=== PATIENT | female | born 1960 | race African-American/Black ===

== ENCOUNTER 2017-07-24 19:45 | Emergency (ER) | payer OTHER ==
[~2017-07-24] VITALS: Ht 170.2 cm; Wt 113.0 kg
[~2017-07-24 19:45] MED LIST: BENA40TA3 PO; HYDR25TA PO; OMEP20CA10 PO
[2017-07-24] MEDS ORDERED: AMLO10TA80 PO (20:09)
[2017-07-24] MEDS ORDERED: SODIUM CHLORIDE 0.9% 1,000 ML IV ONE (20:30)
[2017-07-24] MEDS ORDERED: METHYLPREDNISOLONE SOD SUCC 125 MG/2 ML VIAL IV ONE (20:30)
[2017-07-24] MEDS ORDERED: DIPHENHYDRAMINE 50MG/ML VIAL IV ONE (20:30)
[2017-07-24] MEDS ORDERED: FAMOTIDINE 20MG/2ML VIAL IV ONE (20:30)
[2017-07-24 21:11] LABS: BASOPHILS % 0.5 % (0.0-2.0); EOSINOPHILS % 1.9 % (0.0-5.0); HEMATOCRIT. 28.2 % (36.0-48.0); HEMOGLOBIN. 8.3 g/dL (12.0-16.0); LYMPHOCYTES % 31.7 % (20.0-50.0); MEAN CORPUSCULAR HEMOGLOBIN 18.8 pg (28.0-32.0); MEAN CORPUSCULAR VOLUME 63.4 fL (81.0-99.0); MEAN PLATELET VOLUME 8.6 fl (7.4-10.4); MONOCYTES % 7.1 % (2.0-8.0); NEUTROPHILS % 58.8 % (40.0-76.0); PLATELET 415 x1000/uL (130-400); RED BLOOD CELL COUNT 4.44 mill/uL (4.2-5.4); RED CELL DISTRIBUTION WIDTH 21.6 % (11.6-14.6)
[2017-07-24 21:19] LABS: CHLORIDE 100 mEq/L (98-107)
[2017-07-24 21:27] LABS: CARBON DIOXIDE 25 mEq/L (21-32)
[2017-07-24 21:43] LABS: PLATELET ESTIMATE SLIGHTLY INCREASED
[2017-07-25 02:30] VITALS: BP 153/79
== END 2017-07-25 02:30 | disposition home or self-care (01) ==
LOC: ER 19:45
DX: T78.40XA Allergy, unspecified, initial encounter (principal); L50.9 Urticaria, unspecified; R22.0 Localized swelling, mass and lump, head; I10 Essential (primary) hypertension; F17.200 Nicotine dependence, unspecified, uncomplicated; Z88.0 Allergy status to penicillin; X58.XXXA Exposure to other specified factors, initial encounter
CPT/HCPCS: 36415; 71010; 80053; 85025; 96361; 96374; 96375; 99285; 99406; J1200; J2930; J3490; J7030; Z7610

== ENCOUNTER 2020-10-26 15:10 | Inpatient (IN) | payer OTHER ==
[~2020-10-26] VITALS: Ht 167.6 cm; Wt 80.3 kg
[~2020-10-26 15:10] MED LIST changes: +AMLO10TA80 PO; -BENA40TA3 PO; +BENA40TA9 PO; -OMEP20CA10 PO; +OMEP20CA14 PO
[2020-10-26] MEDS ORDERED: ACETAMINOPHEN 325MG TABLET PO ONE (16:30)
[2020-10-26 17:46] LABS: BG BASE EXCESS -1.5 mmol/L (-2.0-2.0); BG CARBOXYHEMOGLOBIN 0.3 % (0.5-1.5); BG DEOXYHEMOGLOBIN 4.6 % (0.0-5.0); BG FRACTION INSPIRED OXYGEN 36; BG METHEMOGLOBIN 1.3 % (0.0-1.5); BG OXYGEN SATURATION 95.3 % (92.0-98.5); BG OXYHEMOGLOBIN 93.8 % (94.0-97.0); BG PCO2 31.3 mmHg (35.0-45.0); BG PH 7.464 (7.350-7.450); BG PO2 79.4 mmHg (75.0-100.0); BG SAMPLE SITE RIGHT RADIAL; BG VENT MODE NASAL CANNULA
[2020-10-26 22:08] LABS: EOSINOPHILS % 0.1 % (0.0-5.0)
[2020-10-26 22:16] LABS: CHLORIDE 102 mEq/L (98-107)
[2020-10-26 22:17] LABS: BASOPHILS % 0.6 % (0.0-2.0); LYMPHOCYTES % 16.3 % (20.0-50.0); MEAN CORPUSCULAR HEMOGLOBIN 18.1 pg (28.0-32.0); MEAN CORPUSCULAR VOLUME 63.1 fL (81.0-99.0); MEAN PLATELET VOLUME 8.9 fl (7.4-10.4); PLATELET 347 x1000/uL (130-400); RED BLOOD CELL COUNT 3.69 mill/uL (4.2-5.4); RED CELL DISTRIBUTION WIDTH 23.9 % (11.6-14.6)
[2020-10-26 22:20] LABS: HEMATOCRIT. 23.3 % (36.0-48.0); HEMOGLOBIN. 6.7 g/dL (12.0-16.0)
[2020-10-26 22:40] LABS: PLATELET ESTIMATE NORMAL
[2020-10-26] MEDS ORDERED: POTASSIUM CHLORIDE INJ 40 MEQ in DEXT 5% WATER 250 ML IV ONE (23:00)
[2020-10-26] MEDS ORDERED: POTASSIUM CHLORIDE 20MEQ TABLET SR PO ONE (23:00)
[2020-10-27] MEDS ORDERED: KCL 20MEQ/100ML PREMIX 100 ML IV NR ×2 (02:30→04:30)
[2020-10-27] MEDS ORDERED: LIDOCAINE HCL/PF 1% 2ML VIAL ONE (06:00)
[2020-10-27] MEDS ORDERED: ACETAMINOPHEN 325MG TABLET PO PRN (06:15)
[2020-10-27] MEDS ORDERED: MAGNESIUM/ALUMINUM HYDROXIDE/SIMETHICONE 30ML UDC PO PRN (09:45)
[2020-10-27] MEDS ORDERED: ONDANSETRON HCL 4MG/2ML INJ IV PRN (09:45)
[2020-10-27] MEDS ORDERED: POTASSIUM CHLORIDE INJ 40 MEQ in DEXT 5% WATER 250 ML IV NR (10:30)
[2020-10-27] MEDS: PANTOPRAZOLE SODIUM 40 MG/VIAL IV SCH ×2 (10:30→17:00)
[2020-10-27] MEDS: DEXAMETHASONE 10 MG/ML VIAL IV SCH (10:30)
[2020-10-27] MEDS ORDERED: AZITHROMYCIN 500 MG in DEXT 5% WATER 250 ML IV SCH (11:00)
[2020-10-27] MEDS ORDERED: LEVOFLOXACIN 250MG PREMIX 50 ML IV SCH (11:00)
[2020-10-27 12:26] LABS: HEMOGLOBIN 7.1 g/dL (12.0-16.0); MEAN CORPUSCULAR HEMOGLOBIN 19.8 pg (28.0-32.0); MEAN CORPUSCULAR VOLUME 66.8 fL (81.0-99.0); PLATELET 337 x1000/uL (130-400); RED CELL DISTRIBUTION WIDTH 29.1 % (11.6-14.6)
[2020-10-27 12:30] LABS: CHLORIDE 105 mEq/L (98-107)
[2020-10-27 12:36] LABS: TOTAL IRON BINDING CAPACITY 420 ug/dL (250-450)
[2020-10-27 16:31] LABS: BG BASE EXCESS -1.9 mmol/L (-2.0-2.0); BG CARBOXYHEMOGLOBIN 0.5 % (0.5-1.5); BG DEOXYHEMOGLOBIN 6.6 % (0.0-5.0); BG FRACTION INSPIRED OXYGEN 99.9; BG HCO3 ACT 22.1 mmol/L (22.0-26.0); BG METHEMOGLOBIN 0.5 % (0.0-1.5); BG OXYGEN SATURATION 93.3 % (92.0-98.5); BG OXYHEMOGLOBIN 92.4 % (94.0-97.0); BG PO2 70.2 mmHg (75.0-100.0); BG SAMPLE SITE LEFT RADIAL; BG TOTAL HEMOGLOBIN 7.9 g/dL (12.0-18.0); BG VENT MODE MASK - NRB
[2020-10-27] MEDS: DOCUSATE SODIUM 250MG CAPSULE PO SCH (17:45)
[2020-10-27] MEDS: FERROUS SULFATE 325MG TABLET PO SCH (18:00)
[2020-10-28 06:32] LABS: CHLORIDE 105 mEq/L (98-107)
[2020-10-28 06:42] LABS: PHOSPHORUS 1.9 mg/dL (2.5-4.9)
[2020-10-28 06:44] LABS: LDL CHOLESTEROL 79 mg/dL (5-100)
[2020-10-28 06:46] LABS: BASOPHILS % 0.5 % (0.0-2.0); HDL CHOLESTEROL 48 mg/dL (40-59); HEMATOCRIT. 25.1 % (36.0-48.0); HEMOGLOBIN. 7.5 g/dL (12.0-16.0); LYMPHOCYTES % 13.8 % (20.0-50.0); MEAN CORPUSCULAR HEMOGLOBIN 20.3 pg (28.0-32.0); MEAN CORPUSCULAR VOLUME 67.5 fL (81.0-99.0); MEAN PLATELET VOLUME 9.2 fl (7.4-10.4); MONOCYTES % 2.7 % (2.0-8.0); PLATELET 314 x1000/uL (130-400); RED BLOOD CELL COUNT 3.73 mill/uL (4.2-5.4); RED CELL DISTRIBUTION WIDTH 28.2 % (11.6-14.6)
[2020-10-28] MEDS: PANTOPRAZOLE SODIUM 40 MG/VIAL IV SCH ×2 (09:00→17:18)
[2020-10-28] MEDS: DEXAMETHASONE 10 MG/ML VIAL IV SCH (09:00)
[2020-10-28] MEDS: DOCUSATE SODIUM 250MG CAPSULE PO SCH (09:00)
[2020-10-28 10:23] LABS: BG BASE EXCESS -0.5 mmol/L (-2.0-2.0); BG CARBOXYHEMOGLOBIN 0.4 % (0.5-1.5); BG DEOXYHEMOGLOBIN 21.7 % (0.0-5.0); BG FRACTION INSPIRED OXYGEN 100; BG HCO3 ACT 23.2 mmol/L (22.0-26.0); BG METHEMOGLOBIN 0.5 % (0.0-1.5); BG OXYGEN SATURATION 78.1 % (92.0-98.5); BG OXYHEMOGLOBIN 77.4 % (94.0-97.0); BG PCO2 33.6 mmHg (35.0-45.0); BG PH 7.457 (7.350-7.450); BG PO2 41.3 mmHg (75.0-100.0); BG VENT MODE MASK - NRB
[2020-10-28] MEDS: FERROUS SULFATE 325MG TABLET PO SCH ×3 (12:10→17:18)
[2020-10-28] MEDS: LEVOFLOXACIN 500MG PREMIX 100 ML IV SCH (13:24)
[2020-10-28 13:50] VITALS: BP_SYST 132; BP_SYST 154; BP_DIAS 52
[2020-10-28 16:00] VITALS: BP 157/64
[2020-10-28] MEDS ORDERED: POTASSIUM PHOS,M-BASIC-D-BASIC 20 MMOL in DEXT 5% WATER 243.3333 ML IV NR (18:30)
[2020-10-28 19:32] LABS: HEMATOCRIT 26.9 % (36.0-48.0); HEMOGLOBIN 7.7 g/dL (12.0-16.0)
[2020-10-28 20:00] VITALS: BP 141/68
[2020-10-29] VITALS: BP 125/71
[2020-10-29 04:00] VITALS: BP 144/76
[2020-10-29 07:39] LABS: CHLORIDE 104 mEq/L (98-107)
[2020-10-29 07:45] LABS: PHOSPHORUS 3.4 mg/dL (2.5-4.9)
[2020-10-29 08:00] VITALS: BP 143/73
[2020-10-29 08:42] LABS: HEMATOCRIT. 24.8 % (36.0-48.0); HEMOGLOBIN. 7.4 g/dL (12.0-16.0); MEAN CORPUSCULAR HEMOGLOBIN 20.2 pg (28.0-32.0); MEAN CORPUSCULAR VOLUME 67.4 fL (81.0-99.0); RED BLOOD CELL COUNT 3.68 mill/uL (4.2-5.4); RED CELL DISTRIBUTION WIDTH 29.2 % (11.6-14.6)
[2020-10-29] MEDS: FERROUS SULFATE 325MG TABLET PO SCH ×2 (08:42→11:56)
[2020-10-29] MEDS: DEXAMETHASONE 10 MG/ML VIAL IV SCH (08:42)
[2020-10-29] MEDS: PANTOPRAZOLE SODIUM 40 MG/VIAL IV SCH ×2 (08:42→17:34)
[2020-10-29] MEDS: DOCUSATE SODIUM 250MG CAPSULE PO SCH (09:00)
[2020-10-29] MEDS: LEVOFLOXACIN 500MG PREMIX 100 ML IV SCH (11:56)
[2020-10-29 12:00] VITALS: BP 134/69
[2020-10-29 14:25] LABS: MEAN PLATELET VOLUME 9.6 fl (7.4-10.4); PLATELET 422 x1000/uL (130-400)
[2020-10-29 14:29] LABS: NUCLEATED RED BLOOD CELLS 10 /100 WBC; PLATELET ESTIMATE INCREASED
[2020-10-29 16:00] VITALS: BP 139/72
[2020-10-29] MEDS: IRON SUCROSE COMPLEX 100 MG/5 ML ML IV SCH (17:15)
[2020-10-29 20:00] VITALS: BP 120/66
[2020-10-30] VITALS: BP 114/61
[2020-10-30 04:00] VITALS: BP 121/68
[2020-10-30 07:34] LABS: HEMATOCRIT. 26.6 % (36.0-48.0); MEAN CORPUSCULAR HEMOGLOBIN 20.3 pg (28.0-32.0); MEAN CORPUSCULAR VOLUME 67.4 fL (81.0-99.0); MEAN PLATELET VOLUME 9.3 fl (7.4-10.4); PLATELET 460 x1000/uL (130-400); RED BLOOD CELL COUNT 3.95 mill/uL (4.2-5.4); RED CELL DISTRIBUTION WIDTH 29.5 % (11.6-14.6)
[2020-10-30 07:47] LABS: CHLORIDE 105 mEq/L (98-107)
[2020-10-30 08:00] VITALS: BP 136/63
[2020-10-30] MEDS: DOCUSATE SODIUM 250MG CAPSULE PO SCH ×2 (08:57→16:02)
[2020-10-30] MEDS: DEXAMETHASONE 10 MG/ML VIAL IV SCH (08:57)
[2020-10-30] MEDS: IRON SUCROSE COMPLEX 100 MG/5 ML ML IV SCH (08:58)
[2020-10-30] MEDS: PANTOPRAZOLE SODIUM 40 MG/VIAL IV SCH ×2 (08:58→16:07)
[2020-10-30 11:41] VITALS: BP 141/64
[2020-10-30 15:54] VITALS: BP 149/76
[2020-10-30 20:00] VITALS: BP 165/75
[2020-10-30 22:45] LABS: NUCLEATED RED BLOOD CELLS 10 /100 WBC
[2020-10-30 22:46] LABS: PLATELET ESTIMATE INCREASED
[2020-10-30] MEDS: CLONIDINE 0.1MG TABLET PO PRN (23:26)
[2020-10-31] VITALS: BP 101/63
[2020-10-31 04:00] VITALS: BP 130/62
[2020-10-31 08:00] VITALS: BP 147/71
[2020-10-31] MEDS: IRON SUCROSE COMPLEX 100 MG/5 ML ML IV SCH (08:14)
[2020-10-31] MEDS: DEXAMETHASONE 10 MG/ML VIAL IV SCH (08:15)
[2020-10-31] MEDS: PANTOPRAZOLE SODIUM 40 MG/VIAL IV SCH ×2 (08:15→16:59)
[2020-10-31] MEDS: DOCUSATE SODIUM 250MG CAPSULE PO SCH ×2 (08:15→16:59)
[2020-10-31 09:38] LABS: CHLORIDE 106 mEq/L (98-107)
[2020-10-31 10:07] LABS: HEMATOCRIT. 31.4 % (36.0-48.0); HEMOGLOBIN. 8.9 g/dL (12.0-16.0); MEAN CORPUSCULAR HEMOGLOBIN 19.9 pg (28.0-32.0); MEAN CORPUSCULAR VOLUME 69.7 fL (81.0-99.0); MEAN PLATELET VOLUME 9.2 fl (7.4-10.4); PLATELET 385 x1000/uL (130-400); RED CELL DISTRIBUTION WIDTH 29.3 % (11.6-14.6)
[2020-10-31 12:00] VITALS: BP 152/82
[2020-10-31] MEDS ORDERED: THROAT LOZENGES-BENZOCAINE/MENTH/CETYLPYRD CL LOZENGES MM PRN (12:30)
[2020-10-31 16:00] VITALS: BP 144/65
[2020-10-31 20:00] VITALS: BP 141/58
[2020-10-31 23:33] LABS: NUCLEATED RED BLOOD CELLS 5 /100 WBC
[2020-10-31 23:34] LABS: PLATELET ESTIMATE NORMAL
[2020-11-01] VITALS: BP 139/60
[2020-11-01 04:00] VITALS: BP 163/67
[2020-11-01] MEDS: CLONIDINE 0.1MG TABLET PO PRN (05:55)
[2020-11-01 08:00] VITALS: BP 129/65
[2020-11-01] MEDS: PANTOPRAZOLE SODIUM 40 MG/VIAL IV SCH ×2 (08:40→16:43)
[2020-11-01] MEDS: DOCUSATE SODIUM 250MG CAPSULE PO SCH ×2 (08:40→16:44)
[2020-11-01] MEDS: DEXAMETHASONE 10 MG/ML VIAL IV SCH (08:40)
[2020-11-01] MEDS: IRON SUCROSE COMPLEX 100 MG/5 ML ML IV SCH (08:40)
[2020-11-01 12:00] VITALS: BP 118/52
[2020-11-01 16:00] VITALS: BP 124/59
[2020-11-01 20:00] VITALS: BP 129/60
[2020-11-02] VITALS: BP_SYST 120; BP_SYST 147; BP_DIAS 48; BP_DIAS 78
[2020-11-02 04:00] VITALS: BP 143/57
[2020-11-02 07:37] LABS: BASOPHILS % 0.3 % (0.0-2.0); EOSINOPHILS % 2.9 % (0.0-5.0); HEMATOCRIT. 27.3 % (36.0-48.0); HEMOGLOBIN. 8.1 g/dL (12.0-16.0); LYMPHOCYTES % 14.6 % (20.0-50.0); MEAN CORPUSCULAR HEMOGLOBIN 21.1 pg (28.0-32.0); MEAN CORPUSCULAR VOLUME 71.5 fL (81.0-99.0); MEAN PLATELET VOLUME 8.9 fl (7.4-10.4); MONOCYTES % 4.3 % (2.0-8.0); NEUTROPHILS % 77.9 % (40.0-76.0); PLATELET 488 x1000/uL (130-400); RED BLOOD CELL COUNT 3.82 mill/uL (4.2-5.4); RED CELL DISTRIBUTION WIDTH 29.2 % (11.6-14.6)
[2020-11-02 07:57] LABS: CHLORIDE 103 mEq/L (98-107)
[2020-11-02 08:00] VITALS: BP 130/58
[2020-11-02] MEDS: DOCUSATE SODIUM 250MG CAPSULE PO SCH ×2 (09:42→17:25)
[2020-11-02] MEDS: IRON SUCROSE COMPLEX 100 MG/5 ML ML IV SCH (09:42)
[2020-11-02] MEDS: PANTOPRAZOLE SODIUM 40 MG/VIAL IV SCH ×2 (09:42→17:25)
[2020-11-02] MEDS: DEXAMETHASONE 10 MG/ML VIAL IV SCH (09:42)
[2020-11-02 12:00] VITALS: BP 124/66
[2020-11-02 16:00] VITALS: BP 114/64
[2020-11-02 20:00] VITALS: BP 130/67
[2020-11-03] VITALS: BP 122/59
[2020-11-03 04:00] VITALS: BP 170/81
[2020-11-03] MEDS: CLONIDINE 0.1MG TABLET PO PRN (05:56)
[2020-11-03 07:12] LABS: BASOPHILS % 0.2 % (0.0-2.0); EOSINOPHILS % 0.7 % (0.0-5.0); HEMOGLOBIN. 8.1 g/dL (12.0-16.0); MEAN CORPUSCULAR HEMOGLOBIN 21.6 pg (28.0-32.0); MEAN CORPUSCULAR VOLUME 72.4 fL (81.0-99.0); MEAN PLATELET VOLUME 8.8 fl (7.4-10.4); MONOCYTES % 6.1 % (2.0-8.0); PLATELET 447 x1000/uL (130-400); RED BLOOD CELL COUNT 3.73 mill/uL (4.2-5.4)
[2020-11-03 07:37] LABS: CHLORIDE 107 mEq/L (98-107)
[2020-11-03 08:00] VITALS: BP 134/74
[2020-11-03] MEDS: DEXAMETHASONE 10 MG/ML VIAL IV SCH (09:25)
[2020-11-03] MEDS: PANTOPRAZOLE SODIUM 40 MG/VIAL IV SCH ×2 (09:25→17:50)
[2020-11-03] MEDS: DOCUSATE SODIUM 250MG CAPSULE PO SCH ×2 (09:25→17:50)
[2020-11-03 12:00] VITALS: BP 104/50
[2020-11-03 16:00] VITALS: BP 118/59
[2020-11-03 20:45] VITALS: BP 118/50
[2020-11-04] VITALS (7 sets, daily range): BP systolic 106–131; BP diastolic 43–64
[2020-11-04 08:41] LABS: EOSINOPHILS % 1.4 % (0.0-5.0); HEMATOCRIT. 26.9 % (36.0-48.0); MEAN CORPUSCULAR VOLUME 74.1 fL (81.0-99.0); MEAN PLATELET VOLUME 8.8 fl (7.4-10.4); MONOCYTES % 6.7 % (2.0-8.0); NEUTROPHILS % 67.9 % (40.0-76.0); PLATELET 482 x1000/uL (130-400); RED BLOOD CELL COUNT 3.63 mill/uL (4.2-5.4); RED CELL DISTRIBUTION WIDTH 32.3 % (11.6-14.6)
[2020-11-04 08:58] LABS: CHLORIDE 107 mEq/L (98-107)
[2020-11-04] MEDS: PANTOPRAZOLE SODIUM 40 MG/VIAL IV SCH ×2 (09:22→17:49)
[2020-11-04] MEDS: DOCUSATE SODIUM 250MG CAPSULE PO SCH ×2 (09:23→17:49)
[2020-11-04] MEDS: DEXAMETHASONE 10 MG/ML VIAL IV SCH (09:23)
[2020-11-05] VITALS: BP 142/55
[2020-11-05 04:00] VITALS: BP 94/64
[2020-11-05 07:46] VITALS: BP 114/77
[2020-11-05 08:21] LABS: BASOPHILS % 0.2 % (0.0-2.0); EOSINOPHILS % 0.9 % (0.0-5.0); HEMOGLOBIN. 8.3 g/dL (12.0-16.0); LYMPHOCYTES % 30.1 % (20.0-50.0); MEAN CORPUSCULAR HEMOGLOBIN 22.7 pg (28.0-32.0); MEAN CORPUSCULAR VOLUME 74.1 fL (81.0-99.0); MEAN PLATELET VOLUME 9.1 fl (7.4-10.4); MONOCYTES % 8.3 % (2.0-8.0); NEUTROPHILS % 60.5 % (40.0-76.0); PLATELET 523 x1000/uL (130-400); RED BLOOD CELL COUNT 3.64 mill/uL (4.2-5.4); RED CELL DISTRIBUTION WIDTH 36.9 % (11.6-14.6)
[2020-11-05 09:03] LABS: CHLORIDE 107 mEq/L (98-107)
[2020-11-05] MEDS: DEXAMETHASONE 10 MG/ML VIAL IV SCH (09:04)
[2020-11-05] MEDS: DOCUSATE SODIUM 250MG CAPSULE PO SCH (09:04)
[2020-11-05] MEDS: PANTOPRAZOLE SODIUM 40 MG/VIAL IV SCH (09:04)
[2020-11-05] MEDS ORDERED: IPRA3AMP9 HHN (11:08)
[2020-11-05 15:27] LABS: BG BASE EXCESS -1.9 mmol/L (-2.0-2.0); BG CARBOXYHEMOGLOBIN 0.4 % (0.5-1.5); BG DEOXYHEMOGLOBIN 10.2 % (0.0-5.0); BG FRACTION INSPIRED OXYGEN 21; BG HCO3 ACT 21.5 mmol/L (22.0-26.0); BG METHEMOGLOBIN 0.5 % (0.0-1.5); BG OXYGEN SATURATION 89.7 % (92.0-98.5); BG OXYHEMOGLOBIN 88.9 % (94.0-97.0); BG PCO2 31.7 mmHg (35.0-45.0); BG PH 7.449 (7.350-7.450); BG PO2 59.1 mmHg (75.0-100.0); BG SAMPLE SITE RIGHT BRACHIAL; BG TOTAL HEMOGLOBIN 10.1 g/dL (12.0-18.0); BG VENT MODE ROOM AIR
[2020-11-05 17:53] VITALS: BP 116/78
== END 2020-11-05 19:22 | disposition home or self-care (01) | DRG 720 ==
LOC: ER 15:10 → MICUSO 10-27 01:42 → EDBEDREQTM 10-27 01:46 → EDBEDREQSVC 10-27 01:46 → EDBEDREQDT 10-27 01:46 → EDBEDREQ 10-27 01:46 → 7EST 10-28 08:46
PROVIDERS: ADMIT Internal Medicine; ATTEND Internal Medicine
PROC: 30233N1 Transfusion of Nonautologous Red Blood Cells into Peripheral Vein, Percutaneous Approach (ICD-10-PCS; principal; 2020-10-27)
DX: A41.89 Other specified sepsis (principal); U07.1 COVID-19; J96.01 Acute respiratory failure with hypoxia; E87.1 Hypo-osmolality and hyponatremia; E87.6 Hypokalemia; I10 Essential (primary) hypertension; K76.0 Fatty (change of) liver, not elsewhere classified; E78.5 Hyperlipidemia, unspecified; D50.9 Iron deficiency anemia, unspecified; E83.39 Other disorders of phosphorus metabolism; K82.8 Other specified diseases of gallbladder; K92.2 Gastrointestinal hemorrhage, unspecified; J12.82 Pneumonia due to coronavirus disease 2019; Z88.0 Allergy status to penicillin; Z90.710 Acquired absence of both cervix and uterus; Z88.8 Allergy status to other drugs, medicaments and biological substances; Z79.899 Other long term (current) drug therapy; Z68.28 Body mass index [BMI] 28.0-28.9, adult; E44.0 Moderate protein-calorie malnutrition
CPT/HCPCS: 36415; 36600; 71045; 76700; 80048; 80053; 80061; 80076; 82270; 82375; 82728; 82805; 83540; 83550; 83735; 84100; 84145; 84443; 84484; 85014; 85018; 85025; 85027; 85379; 86140; 86850; 86900; 86920; 93005; 93970; 99291; C1893; C9113; C9803; J0456; J1100; J1956; J2405; J3480; J3490; J7040; J7060; P9016; U0003